=== PATIENT | female | born 1990 | race Caucasian/White ===

== ENCOUNTER → 2019-09-30 | Outpatient (CLI) | payer OTHER ==
--- NOTE | 2019-09-30 15:41 | Diagnostic Imaging Report ---
INDICATION: Back pain. AP and lateral views of the thoracic spine are obtained. The thoracic vertebrae are normal in height and alignment. There is no fracture or subluxation or compression deformity. There is no significant disc space narrowing. IMPRESSION: Negative thoracic spine series. Dictated by: Dictated on workstation # [id number]
--- NOTE | 2019-09-30 15:42 | Diagnostic Imaging Report ---
INDICATION: Neck pain. AP, lateral, and odontoid views of the cervical spine are obtained. The cervical vertebrae are normal in height and alignment. There is no fracture or subluxation. There is no significant disc space narrowing. The odontoid appears intact. IMPRESSION: Negative cervical spine series. Dictated by: Dictated on workstation # [id number]
== END ==
LOC: RAD FS 09:47
PROVIDERS: ATTEND Nurse Practitioner
DX: M54.2 Cervicalgia (principal); M54.6 Pain in thoracic spine
CPT/HCPCS: 72040; 72070